=== PATIENT | male | born 1965 | race Caucasian/White ===

== ENCOUNTER 2017-08-10 21:25 | Emergency (ER) | payer OTHER ==
--- NOTE | 2017-08-10 22:55 | ED ---
Skin/Abscess/FB HPI - General Chief complaint: Skin/Abscess/Foreign Body Stated complaint: infection Time Seen by Provider: 08/10/17 22:33 Source: patient Mode of arrival: ambulatory Limitations: no limitations - History of Present Illness Initial comments: This patient is a 52-year-old man who presents for evaluation of his left leg at the site of a procedure. The patient states that he saw Dr. Ortiz on and had excision of a suspected basal cell carcinoma to the posterior aspect of his left leg, distal to his knee. The patient states that when he took the bandage off this evening, he was concerned that there may be infection , as the area looked a little red. He has not had any type of systemic symptoms , including no fever or chills, palpitations, chest pain, dyspnea, lightheadedness or other symptoms. There has been no drainage. The patient does not have pain at the site. MD complaint: discoloration -: hour(s) Tetanus Up to Date: yes Location: LLE Improves with: none Worsens with: none Context: other Associated symptoms: denies other symptoms - Related Data Home Medications Medication Instructions Recorded Confirmed Levothyroxine Sodium [Synthroid] 1 tab PO DAILY 08/10/17 08/10/17 Rosuvastatin [Crestor] 1 tab PO DAILY 08/10/17 08/10/17 Previous Rx's Medication Instructions Recorded Sulfamethox-Tmp 800-160Mg [Bactrim 2 each PO Q12HR #28 tab 08/10/17 Ds] Allergies Allergy/AdvReac Type Severity Reaction Status Date / Time No Known Allergies Allergy Verified 08/10/17 22:08 Review of Systems ROS Statement: Those systems with pertinent positive or pertinent negative responses have been documented in the HPI. ROS Other: All systems not noted in ROS Statement are negative. Constitutional: Denies: fever, chills Respiratory: Denies: cough, dyspnea Cardiovascular: Denies: chest pain, palpitations Skin: Reports: as per HPI, change in color. Denies: rash Past Medical History Past Medical History: Cancer, Hyperlipidemia, Thyroid Disorder History of Any Multi-Drug Resistant Organisms: None Reported Past Surgical History: Orthopedic Surgery Past Psychological History: No Psychological Hx Reported Smoking Status: Never smoker Past Alcohol Use History: None Reported Past Drug Use History: None Reported General Exam Limitations: no limitations General appearance: alert, in no apparent distress Skin exam: Present: warm, dry, intact, normal color, other (Patient has sutures to the posterior aspect of the left leg distal to his knee area the surrounding skin has no warmth. There is a trace of ecchymosis at the distal end of the incision. There is trace erythema.). Absent: rash Course Vital Signs 08/10/17 22:05 Temperature 98 F Pulse Rate 78 Respiratory 18 Rate Blood Pressure 131/68 O2 Sat by Pulse 98 Oximetry Medical Decision Making - Medical Decision Making At this point, the procedure site does not show definite signs of infection. I did discuss that if there is an increase in erythema, development of warmth, swelling, tenderness, as well as other symptoms and signs of infection, that he should start the antibiotic prescription that he was provided here today as a precaution. The patient also instructed to follow-up here or with Dr. Ortiz, should there be any worsening or other concerns. Disposition Clinical Impression: Encounter for postoperative wound check Disposition: HOME SELF-CARE Condition: Good Instructions: Surgical Site Infections (ED) Prescriptions: Sulfamethox-Tmp 800-160Mg [Bactrim Ds] 2 each PO Q12HR #28 tab Referrals: Lenin Guthrie MD [Primary Care Provider] - 1-2 days
[2017-08-10 23:19] VITALS: BP 136/70; PULSE 80; RESP 20; TEMP 98.2
== END 2017-08-10 23:19 | disposition home or self-care (01) ==
LOC: EC 21:25
DX: Z48.01 Encounter for change or removal of surgical wound dressing (principal); E78.5 Hyperlipidemia, unspecified; E07.9 Disorder of thyroid, unspecified; Z85.9 Personal history of malignant neoplasm, unspecified; Z79.899 Other long term (current) drug therapy
CPT/HCPCS: 99282

== ENCOUNTER → 2018-07-18 | Outpatient (CLI) | payer OTHER ==
--- NOTE | 2018-07-18 11:08 | P.STRESS ---
- Stress Test Note Stress Test Results/Findings: Exam Performed: stress echo exercise Exam Date: 07/18/18 Reason for Exam: palpitations Height: 6 ft Weight: 138.799 kg Protocol: katie Stage: 3 Duration of Exercise: 9 min Resting Heart Rate: 79 Resting Blood Pressure: 106/53 Maximum Achieved Heart Rate: 157 Maximum Achieved Blood Pressure: 176/54 85% PMHR: 142 100% PMHR: 167 METS: 10.1 Technologist Comment: Stress Test Results/Findings: This is a 53-year-old female being evaluated for symptoms of palpitations. This family history of ischemic heart disease. Stress data: Baseline EKG showed a sinus rhythm with normal [place] interval, QRS duration. Blood pressure at rest is 106/53 with pulse rate of 79. Patient walked on the Katie protocol for 9 minutes achieving a maximal heart rate of 157 with a blood pressure 176/54. EKGs taken during and after that side did not reveal any significant changes from the baseline. Echo data: Baseline echo images showed normal wall motion and thickening. Exercise echo images showed augmentation of the wall motion and thickening in all the segments. Final impression: #1. Negative stress test #2. Negative stress echo
--- NOTE | 2018-07-18 12:20 | ECHOS ---
Stress Test Results/Findings: Exam Performed: stress echo exercise Exam Date: 07/18/18 Reason for Exam: palpitations Height: 6 ft Weight: 138.799 kg Protocol: katie Stage: 3 Duration of Exercise: 9 min Resting Heart Rate: 79 Resting Blood Pressure: 106/53 Maximum Achieved Heart Rate: 157 Maximum Achieved Blood Pressure: 176/54 85% PMHR: 142 100% PMHR: 167 METS: 10.1 Technologist Comment: Stress Test Results/Findings: This is a 53-year-old female being evaluated for symptoms of palpitations. This family history of ischemic heart disease. Stress data: Baseline EKG showed a sinus rhythm with normal [place] interval, QRS duration. Blood pressure at rest is 106/53 with pulse rate of 79. Patient walked on the Katie protocol for 9 minutes achieving a maximal heart rate of 157 with a blood pressure 176/54. EKGs taken during and after that side did not reveal any significant changes from the baseline. Echo data: Baseline echo images showed normal wall motion and thickening. Exercise echo images showed augmentation of the wall motion and thickening in all the segments. Final impression: #1. Negative stress test #2. Negative stress echo MTDD
== END | disposition home or self-care (01) ==
LOC: RADNMMAIN 08:41
PROVIDERS: ATTEND Family Medicine
DX: R00.2 Palpitations (principal)
CPT/HCPCS: 93351

== ENCOUNTER → 2019-08-14 | Outpatient (CLI) | payer OTHER ==
--- NOTE | 2019-08-14 13:05 | CT ---
EXAMINATION TYPE: CT angio chest DATE OF EXAM: 08/14/2019 COMPARISON: 09/06/2015 HISTORY: Thoracic aortic aneurysm, without rupture CT DLP: 2170.60 mGycm CONTRAST: CTA thoracic aorta with 3-D reconstruction is performed and without and with IV Contrast, patient inj ected with 100 ml mL of Isovue 370. Contrast CTA of the thoracic aorta was performed from the lung apex through the upper abdomen. 3D re construction imaging obtained at a separate workstation. CT Chest: THORACIC AORTA: No evidence for thoracic aortic aneurysm. Mild atheromatous changes seen. There is n o evidence for dissection or periaortic collection. LUNGS: The lungs are clear and free of infiltrate or atelectasis. No pulmonary nodule or mass is det ected. No pleural effusion or CT evidence of interstitial lung disease. MEDIASTINUM: No evidence for mediastinal hematoma. The heart is not enlarged. No evidence for med iastinal mass or adenopathy. HILAR STRUCTURES: No evidence for mass. No hilar adenopathy is appreciated. OTHER: No significant abnormality. IMPRESSION- No evidence for thoracic aortic aneurysm or aneurysm of the upper abdominal aorta.
== END | disposition home or self-care (01) ==
LOC: RADCTMAIN 09:27
PROVIDERS: ATTEND Internal Medicine
DX: I71.2 Thoracic aortic aneurysm, without rupture (principal)
CPT/HCPCS: 71275; Q9967

== ENCOUNTER 2019-12-08 15:45 | Emergency (ER) | payer OTHER ==
--- NOTE | 2019-12-08 16:23 | XR ---
KUB HISTORY: Right-sided flank pain Frontal KUB and 2 images Surgical clips are present right upper quadrant. Lung bases are clear. No evident bowel obstruction o r pneumoperitoneum. No pathologic calcification. Bone mineralization is normal, hypertrophic changes are present in the visualized spine. IMPRESSION: Postop changes.
[2019-12-08] MEDS ORDERED: SODIUM CHLORIDE 0.9% 1,000 ML IV STA (16:33)
[2019-12-08] MEDS ORDERED: SODIUM CHLORIDE 0.9% 2,000 ML IV STA (16:33)
[2019-12-08] MEDS ORDERED: KETOROLAC 30 MG/ML 1 ML VIAL IVP STA (16:33)
[2019-12-08] MEDS ORDERED: MORPHINE SULFATE 4 MG/ML SYRINGE IV STA (16:33)
[2019-12-08] MEDS ORDERED: ONDANSETRON 4 MG/2 ML VIAL IVP STA (16:33)
--- NOTE | 2019-12-08 16:36 | ED ---
Abdominal Pain HPI - General Chief Complaint: Abdominal Pain Stated Complaint: Back pain Time Seen by Provider: 12/08/19 16:22 Source: patient, RN notes reviewed, old records reviewed Mode of arrival: ambulatory Limitations: no limitations - History of Present Illness Initial Comments: This Patient is a 54-year-old male presents emergency department today with sudden onset of right-sided groin pain, with pain eventually progressing up towards abdomen and back. Patient reports he has noticed dark urine yesterday. Patient states that he has had no fevers or chills. Complains nausea. 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 Patient states that he's had no history of kidney stones. He has had previous hernia repair surgery. - Related Data Home Medications Medication Instructions Recorded Confirmed Levothyroxine Sodium [Synthroid] 1 tab PO DAILY 08/10/17 08/10/17 Rosuvastatin [Crestor] 1 tab PO DAILY 08/10/17 08/10/17 Previous Rx's Medication Instructions Recorded Sulfamethox-Tmp 800-160Mg [Bactrim 2 each PO Q12HR #28 tab 08/10/17 Ds] HYDROcodone/APAP 5-325MG [[place] 1 tab PO Q6HR PRN #12 tab 12/08/19 5-325] Ketorolac [Toradol] 10 mg PO Q6HR #20 tab 12/08/19 Ondansetron [Zofran ODT] 4 mg PO Q8HR #20 tab 12/08/19 Tamsulosin [Flomax] 0.4 mg PO DAILY #7 cap 12/08/19 Allergies Allergy/AdvReac Type Severity Reaction Status Date / Time No Known Allergies Allergy Verified 12/08/19 15:52 Review of Systems ROS Statement: Those systems with pertinent positive or pertinent negative responses have been documented in the HPI. ROS Other: All systems not noted in ROS Statement are negative. Past Medical History Past Medical History: Cancer, Hyperlipidemia, Thyroid Disorder History of Any Multi-Drug Resistant Organisms: None Reported Past Surgical History: Orthopedic Surgery Past Psychological History: No Psychological Hx Reported Smoking Status: Never smoker Past Alcohol Use History: None Reported Past Drug Use History: None Reported General Exam - General Exam Comments Initial Comments: 54-year-old male. Alert and oriented. No distress. Limitations: no limitations General appearance: alert, in no apparent distress Head exam: Present: atraumatic, normocephalic, normal inspection Eye exam: Present: normal appearance, PERRL, EOMI. Absent: scleral icterus, conjunctival injection, periorbital swelling ENT exam: Present: normal exam, mucous membranes moist Neck exam: Present: normal inspection. Absent: tenderness, meningismus, lymphadenopathy Respiratory exam: Present: normal lung sounds bilaterally. Absent: respiratory distress, wheezes, rales, rhonchi, stridor Cardiovascular Exam: Present: regular rate, normal rhythm, normal heart sounds. Absent: systolic murmur, diastolic murmur, rubs, gallop, clicks GI/Abdominal exam: Present: soft, tenderness (RLQ), normal bowel sounds. Absent: distended, guarding, rebound, rigid Extremities exam: Present: normal inspection, full ROM, normal capillary refill. Absent: tenderness, pedal edema, joint swelling, calf tenderness Back exam: Present: normal inspection, CVA tenderness (R) Neurological exam: Present: alert, oriented X3, CN II-XII intact Course Vital Signs 12/08/19 12/08/19 15:48 17:58 Temperature 97.6 F 98.0 F Pulse Rate 82 77 Respiratory 20 18 Rate Blood Pressure 134/86 139/60 O2 Sat by Pulse 98 93 L Oximetry Medical Decision Making - Medical Decision Making 54-year-old male who presents with sudden onset of right-sided groin and flank pain. Patient's urinalysis is positive for hematuria. Patient labs reviewed and noted to be unremarkable. Normal kidney function. Patient CT and pelvis was completed and does show evidence of a 4 mm right UVJ stone. Discussed treatment with Flomax Toradol and [place]. Patient signed pain contract. Discussed following up with urology and return parameters were discussed. Discussed the importance of hydration. - Lab Data Result diagrams: 12/08/19 16:45 12/08/19 16:45 Lab Results 12/08/19 12/08/19 12/08/19 Range/Units 16:06 16:45 16:45 WBC 9.0 (3.8-10.6) k/uL RBC 4.99 (4.30-5.90) m/uL Hgb 15.4 (13.0-17.5) gm/dL Hct 45.9 (39.0-53.0) % MCV 92.1 (80.0-100.0) fL MCH 31.0 (25.0-35.0) pg MCHC 33.6 (31.0-37.0) g/dL RDW 12.7 (11.5-15.5) % Plt Count 195 (150-450) k/uL Neutrophils % 65 % Lymphocytes % 24 % Monocytes % 6 % Eosinophils % 1 % Basophils % 1 % Neutrophils # 5.8 (1.3-7.7) k/uL Lymphocytes # 2.2 (1.0-4.8) k/uL Monocytes # 0.6 (0-1.0) k/uL Eosinophils # 0.1 (0-0.7) k/uL Basophils # 0.1 (0-0.2) k/uL PT (9.0-12.0) sec INR (<1.2) APTT (22.0-30.0) sec Sodium 138 (137-145) mmol/L Potassium 4.3 (3.5-5.1) mmol/L Chloride 100 (98-107) mmol/L Carbon Dioxide 28 (22-30) mmol/L Anion Gap 10 mmol/L BUN 25 H (9-20) mg/dL Creatinine 1.41 H (0.66-1.25) mg/dL Est GFR (CKD-EPI)AfAm 65 (>60 ml/min/1.73 sqM) Est GFR (CKD-EPI)NonAf 56 (>60 ml/min/1.73 sqM) Glucose 96 (74-99) mg/dL Calcium 9.9 (8.4-10.2) mg/dL Total Bilirubin 0.6 (0.2-1.3) mg/dL AST 49 (17-59) U/L ALT 46 (4-49) U/L Alkaline Phosphatase 47 (38-126) U/L Total Protein 6.9 (6.3-8.2) g/dL Albumin 4.6 (3.5-5.0) g/dL Amylase 49 (30-110) U/L Lipase 157 (23-300) U/L Urine Color Yellow Urine Appearance Slightly Cloudy (Clear) Urine pH 6.0 (5.0-8.0) Ur Specific [place] 1.025 (1.001-1.035) Urine Protein Negative (Negative) Urine Glucose (UA) Negative (Negative) Urine Ketones Negative (Negative) Urine Blood Large (Negative) Urine Nitrite Negative (Negative) Urine Bilirubin Negative (Negative) Urine Urobilinogen <2.0 (<2.0) mg/dL Ur Leukocyte Esterase Negative (Negative) Urine RBC >182 H (0-5) /hpf Urine WBC 2 (0-5) /hpf Urine Mucus Rare H (None) /hpf Urine Yeast (Budding) Few H (None) /hpf 12/08/19 Range/Units 16:45 WBC (3.8-10.6) k/uL RBC (4.30-5.90) m/uL Hgb (13.0-17.5) gm/dL Hct (39.0-53.0) % MCV (80.0-100.0) fL MCH (25.0-35.0) pg MCHC (31.0-37.0) g/dL RDW (11.5-15.5) % Plt Count (150-450) k/uL Neutrophils % % Lymphocytes % % Monocytes % % Eosinophils % % Basophils % % Neutrophils # (1.3-7.7) k/uL Lymphocytes # (1.0-4.8) k/uL Monocytes # (0-1.0) k/uL Eosinophils # (0-0.7) k/uL Basophils # (0-0.2) k/uL PT 10.6 (9.0-12.0) sec INR 1.0 (<1.2) APTT 22.5 (22.0-30.0) sec Sodium (137-145) mmol/L Potassium (3.5-5.1) mmol/L Chloride (98-107) mmol/L Carbon Dioxide (22-30) mmol/L Anion Gap mmol/L BUN (9-20) mg/dL Creatinine (0.66-1.25) mg/dL Est GFR (CKD-EPI)AfAm (>60 ml/min/1.73 sqM) Est GFR (CKD-EPI)NonAf (>60 ml/min/1.73 sqM) Glucose (74-99) mg/dL Calcium (8.4-10.2) mg/dL Total Bilirubin (0.2-1.3) mg/dL AST (17-59) U/L ALT (4-49) U/L Alkaline Phosphatase (38-126) U/L Total Protein (6.3-8.2) g/dL Albumin (3.5-5.0) g/dL Amylase (30-110) U/L Lipase (23-300) U/L Urine Color Urine Appearance (Clear) Urine pH (5.0-8.0) Ur Specific [place] (1.001-1.035) Urine Protein (Negative) Urine Glucose (UA) (Negative) Urine Ketones (Negative) Urine Blood (Negative) Urine Nitrite (Negative) Urine Bilirubin (Negative) Urine Urobilinogen (<2.0) mg/dL Ur Leukocyte Esterase (Negative) Urine RBC (0-5) /hpf Urine WBC (0-5) /hpf Urine Mucus (None) /hpf Urine Yeast (Budding) (None) /hpf - Radiology Data Radiology results: report reviewed CT shows bilateral renal clearly. Obstructing small calculus of the right ureteral vesicle junction with right-sided hydronephrosis and hydroureter. The stone measures 4 mm. Disposition Clinical Impression: Ureteral calculus, right Disposition: HOME SELF-CARE Condition: Good Instructions (If sedation given, give patient instructions): Ureteral Stones (ED) Additional Instructions: Patient advised to drink plenty of fluids. Follow-up with your primary care physician and urology. Returning to PCP or ED if symptom are even worse after 2 days. Turn to the ED if there is any fever or severe nausea and vomiting and can't tolerate medications. Patient should not be driving on any narcotic pain medication. Return to the ED if any alarming signs or symptoms occur. Prescriptions: Tamsulosin [Flomax] 0.4 mg PO DAILY #7 cap HYDROcodone/APAP 5-325MG [[place] 5-325] 1 tab PO Q6HR PRN #12 tab PRN Reason: Pain Ketorolac [Toradol] 10 mg PO Q6HR #20 tab Ondansetron [Zofran ODT] 4 mg PO Q8HR #20 tab Is patient prescribed a controlled substance at d/c from ED?: Yes If prescribed controlled substance>3 days was MAPS reviewed?: Prescribed <3 Days If opioid is for acute pain is fill amount 7 days or less?: Yes If Rx opioid, was Start Talking consent form obtained?: Yes Referrals: Lenin Guthrie MD [Primary Care Provider] - 1-2 days Cesar Barnes MD [STAFF PHYSICIAN] - 1-2 days Time of Disposition: 18:23
[2019-12-08 16:54] LABS: Budding Yeast,Urine Few /hpf; Mucus,Urine Rare /hpf; RBC,Urine >182 /hpf (0-5); WBC,Urine 2 /hpf (0-5)
[2019-12-08 16:57] LABS: Appearance,Urine Slightly Cloudy (Clear); Bilirubin,Urine Negative (Negative); Blood,Urine Large (Negative); Color,Urine Yellow; Glucose,Urine (UA) Negative (Negative); Ketones,Urine Negative (Negative); Leukocyte Esterase,Urine Negative (Negative); Nitrite,Urine Negative (Negative); Protein,Urine Negative (Negative); Specific Gravity,Urine 1.025 (1.001-1.035); Urobilinogen,Urine <2.0 mg/dL (<2.0)
[2019-12-08 17:06] LABS: Basophils # (A) 0.1 k/uL (0-0.2); Basophils % (A) 1 %; Eosinophils # (A) 0.1 k/uL (0-0.7); Eosinophils % (A) 1 %; HCT 45.9 % (39.0-53.0); HGB 15.4 gm/dL (13.0-17.5); Lymphocytes # (A) 2.2 k/uL (1.0-4.8); Lymphocytes % (A) 24 %; MCHC 33.6 g/dL (31.0-37.0); MCV 92.1 fL (80.0-100.0); Mean Platelet Volume 7.4; Monocytes # (A) 0.6 k/uL (0-1.0); Monocytes % (A) 6 %; Neutrophils # (A) 5.8 k/uL (1.3-7.7); Neutrophils % (A) 65 %; Platelet Count 195 k/uL (150-450); RBC 4.99 m/uL (4.30-5.90); RDW 12.7 % (11.5-15.5)
[2019-12-08 17:08] LABS: Partial Thromboplastin Time 22.5 sec (22.0-30.0); Prothrombin Time 10.6 sec (9.0-12.0)
[2019-12-08 17:33] LABS: Albumin 4.6 g/dL (3.5-5.0); Calcium 9.9 mg/dL (8.4-10.2); Potassium 4.3 mmol/L (3.5-5.1); Total Bilirubin 0.6 mg/dL (0.2-1.3); Total Protein 6.9 g/dL (6.3-8.2)
--- NOTE | 2019-12-08 17:48 | CT ---
EXAMINATION TYPE: CT abdomen pelvis wo con DATE OF EXAM: 12/08/2019 COMPARISON: None HISTORY: Right sided flank and groin pain with urination changes CT DLP: 1719 mGycm Automated exposure control for dose reduction was used. Multiple axial sections were obtained from the diaphragm to the floor the pelvis with no contrast. There is mild atelectasis right posterior lung base. There is no pleural effusion. Heart size is norm al. There is no pericardial effusion. Liver appears normal. There are clips from cholecystectomy. Spleen is intact. There is no pancreatic mass. Stomach is intact. The bile ducts are not dilated. There is no adrenal mass. There are bilateral small renal calculi that measure up to 4 mm. There is r ight-sided hydronephrosis and hydroureter. There is 4 mm calculus at the right ureterovesical junctio n. Bladder distends smoothly. There is no retroperitoneal adenopathy. Appendix appears normal. There is no inguinal hernia. There is no mesenteric edema. There is no ascites or free air. There is no evidence of a bowel obstruction. Lumbar vertebra have normal alignment. There is multilevel spondy lotic changes with disc space narrowing and spurring of the endplates. There is moderate 3 4 spinal s tenosis. There is no compression fracture. The bony pelvis is intact. There is minor spurring of the acetabula. IMPRESSION: Bilateral renal calculi. Obstructing small calculus at the right ureterovesical junction with right-s ided hydronephrosis and hydroureter.
[2019-12-08] MEDS ORDERED: TAMSULOSIN 0.4 MG CAP.ER.24H PO STA (17:55)
[2019-12-08 17:59] VITALS: BP 139/60; PULSE 77; RESP 18; TEMP 98
[2019-12-08] MEDS ORDERED: ONDANSETRON 4 MG ODT STARTER PACK 2 TAB BTL PO STA (18:28)
[2019-12-08] MEDS ORDERED: ACET/COD 300 MG/30 MG STARTER PACK 6 TAB BTL PO STA (18:28)
== END 2019-12-08 19:01 | disposition home or self-care (01) ==
LOC: EC 15:45
DX: N13.2 Hydronephrosis with renal and ureteral calculous obstruction (principal); E07.9 Disorder of thyroid, unspecified; E78.5 Hyperlipidemia, unspecified; Z79.890 Hormone replacement therapy; Z79.899 Other long term (current) drug therapy
CPT/HCPCS: 36415; 80053; 82150; 83690; 85025; 85610; 85730; 81001; 74018; 74176; 99285; 96374; 96375 ×2; 96361 ×2; J2270; J2405; J1885; S0119

== ENCOUNTER → 2023-09-27 | Outpatient (CLI) | payer OTHER ==
--- NOTE | 2023-09-27 18:23 | CA ---
Transthoracic Echo Report Name: Jimmy Graham Age: 58 Gender: M : 1965 Exam Date: 09/27/2023 14:33 Exam Location: [facility] Ht (in): 72 Wt (lb): 305 Ordering Physician: Lenin Guthrie MD Attending/Referring Phys: Lenin Guthrie MD Integration Architect Deanna Pena RDCS Procedure CPT: Indications: I10 HTN Cardiac Hx: Technical Quality: Fair Contrast 1: Total Dose (mL): Contrast 2: Total Dose (mL): MEASUREMENTS (Male / Female) Normal Values 2D ECHO LV Diastolic Diameter PLAX 4.2 cm 4.2 - 5.9 / 3.9 - 5.3 cm LV Systolic Diameter PLAX 2.1 cm IVS Diastolic Thickness 1.6 cm 0.6 - 1.0 / 0.6 - 0.9 cm LVPW Diastolic Thickness 1.9 cm 0.6 - 1.0 / 0.6 - 0.9 cm LV Relative Wall Thickness 0.8 RV Internal Dim ED PLAX 3.7 cm LA Volume 45.9 cm??? 18 - 58 / 22 - 52 cm??? LA Volume Index 16.9 cm???/m??? 16 - 28 cm???/m??? M-MODE Aortic Root Diameter MM 4.5 cm LA Systolic Diameter MM 3.8 cm LA Ao Ratio MM 0.8 AV Cusp Separation MM 2.7 cm DOPPLER AV Peak Velocity 122.5 cm/s AV Peak Gradient 6.0 mmHg AV Mean Velocity 95.4 cm/s AV Mean Gradient 4.0 mmHg AV Velocity Time Integral 26.2 cm LVOT Peak Velocity 116.4 cm/s LVOT Peak Gradient 5.4 mmHg LVOT Velocity Time Integral 24.5 cm MV Area PHT 3.7 cm??? Mitral E Point Velocity 56.2 cm/s Mitral A Point Velocity 75.2 cm/s Mitral E to A Ratio 0.7 MV Deceleration Time 206.3 ms MV E' Velocity 6.6 cm/s Mitral E to MV E' Ratio 8.5 TR Peak Velocity 253.7 cm/s TR Peak Gradient 25.8 mmHg Right Ventricular Systolic Press 30.5 mmHg FINDINGS Left Ventricle Moderately increased left ventricular wall thickness. Normal left ventricular systolic function with no obvious regional wall motion abnormalities. Left ventricular cavity size normal. Left ventricular ejection fraction is estimated at 55-60 %. Right Ventricle Mild right ventricular dilatation. Right ventricular systolic pressure within normal limits. Right Atrium Normal right atrial size. Left Atrium Normal left atrial size. Mitral Valve Structurally normal mitral valve. Aortic Valve Trileaflet aortic valve. No aortic valve stenosis or regurgitation. Tricuspid Valve Structurally normal tricuspid valve. Mild tricuspid regurgitation. Pulmonic Valve Structurally normal pulmonic valve. Pericardium No pericardial effusion. Aorta Mild aortic dilatation at the level of the sinuses of valsalva (root). CONCLUSIONS Normal LV systolic function Previewed by: Dr. Alexey Quinonez MD (Electronically Signed) Final Date: 27 September 2023 18:22
== END | disposition home or self-care (01) ==
LOC: RADECHMAIN 14:29
PROVIDERS: ATTEND Family Medicine
DX: I10 Essential (primary) hypertension (principal)
CPT/HCPCS: 93306